=== PATIENT | male | born 1995 | race Hispanic/Latino ===

== ENCOUNTER 2018-04-17 19:07 | Emergency (ER) | payer SELFPAY ==
[~2018-04-17] VITALS: Ht 170.2 cm; Wt 195.0 kg
--- OUTSIDE RECORDS SUMMARY | 2018-04-17 19:09 | XMS REPORT | Continuity of Care Document ---
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 No 11/26/17 1:08am Chief Complaint and Reason for Visit Chief Complaint Chest Pain Reason for Visit Chest discomfort Problems Medical Problem Onset Date Status Heat exhaustion Unknown Acute Past Problems Medical Problem Onset Date Status Chest discomfort Unknown Acute Medications Current Home Medications Medication Dose Units Route Directions Days Qty Instructions Start Date Ibuprofen (Motrin) 600 Mg Tab 600 Mg Oral Three Times A Day as needed for Pain 5 Days 15 Tablet 11/26/17 Neomycin/Polymyxin/Hydrocortisone (Cortisporin Otic Soln) 10 Ml Drops.susp 3 Drop Right Ear Three Times A Day 10 Milliliter 12/29/11 Social History Social History Problem Response Recorded Date/Time Onset Date Status Hx Tobacco Use No 11/26/2017 1:08am Not Applicable Not Applicable Hospital Discharge Instructions No hospital discharge instruction information available. Plan of Care Discharge Date 11/26/17 6:25am Disposition HOME, SELF-CARE 01 Condition at Discharge Stable Instructions/Education Provided Chest Pain (DC) Prescriptions See Medication Section Referrals NO PCP Additional Instructions/Education You were evaluated here in the emergency department today. Please follow-up with your primary care doctor as discussed. If you do not have a primary care doctor please go to: [facility] Address: [address], [place] [address] Return to the ER right away if your symptoms worsen or you have any other immediate concerns. Functional Status Query Response Date Recorded Onset Within the Last 7 Days No Problem Identified November 26, 2017 1:08am Allergies, Adverse Reactions, Alerts Allergen Type Severity Reaction Status Last Updated NO KNOWN ALLERGY Active 12/29/11 Immunizations Query Response on File Recorded Date/Time HX of Pneumococcal Vaccine No 11/26/17 1:08am HX of Influenza Vaccine No 11/26/17 1:08am Tetanus Status Unknown 11/26/17 1:08am Vital Signs Acute Vital Signs Vital Response Date/Time Temperature (Fahrenheit) 97.6 degrees F (97.6 - 99.5) 11/26/2017 1:22am Pulse Rate (adult) 72 bpm (60 - 100) 11/26/2017 1:22am Pulse Rate 70 bpm 11/26/2017 6:20am Respiratory Rate 24 breaths per minute (12 - 24) 11/26/2017 1:22am Respiratory Rate 20 breaths per minute 11/26/2017 6:20am Blood Pressure Systolic 144 mm Hg (100 - 140) 11/26/2017 1:22am Blood Pressure Systolic 142 mm Hg 11/26/2017 6:20am Blood Pressure Diastolic 91 mm Hg (60 - 90) 11/26/2017 1:22am Blood Pressure Diastolic 89 mm Hg 11/26/2017 6:20am Height 5 ft 10 in 11/26/2017 1:22am Weight 438.38 lb 11/26/2017 1:22am Body Mass Index 62.9 kg/m^2 11/26/2017 1:22am Results Laboratory Results Test Name Result Units Flags Reference Collection Date/Time Result Date/Time Comments White Blood Count 7.3 10*3/uL 4.5-11.5 11/26/2017 1:30am 11/26/2017 1:50am Red Blood Count 5.01 10*6/uL 4.4-6.2 11/26/2017 1:30am 11/26/2017 1:50am Hemoglobin 14.1 g/dL 13.0-17.5 11/26/2017 1:11/26/2017 1:50am Hematocrit 43.2 % 39.0-52.5 11/26/2017 1:11/26/2017 1:50am Mean Corpuscular Volume 86 fL 80-94 11/26/2017 1:11/26/2017 1:50am Mean Corpuscular Hemoglobin 28.1 pg 27.0-33.0 11/26/2017 1:11/26/2017 1:50am Mean Corpuscular Hemoglobin Concent 32.6 g/dL L 33.0-37.0 11/26/2017 1:11/26/2017 1:50am Red Cell Distribution Width 13.3 % 10.7-14.5 11/26/2017 1:11/26/2017 1:50am Platelet Count 317 10*3/uL 150-450 11/26/2017 1:11/26/2017 1:50am Mean Platelet Volume 9.1 fl 5.7-10.7 11/26/2017 1:11/26/2017 1:50am Neutrophils (%) (Auto) 51 % 47-75 11/26/2017 1:11/26/2017 1:50am Immature Granulocyte % (Auto) 0 % 0-0 11/26/2017 1:11/26/2017 1:50am Lymphocytes (%) (Auto) 36 % 25-44 11/26/2017 1:11/26/2017 1:50am Monocytes (%) (Auto) 9 % 3-10 11/26/2017 1:11/26/2017 1:50am Eosinophils (%) (Auto) 4 % 0-7 11/26/2017 1:11/26/2017 1:50am Basophils (%) (Auto) 0 % 0-1 11/26/2017 1:11/26/2017 1:50am Nucleated Red Blood Cells % 0.0 % 0-0.2 11/26/2017 1:11/26/2017 1:50am Neutrophils # (Auto) 3.7 10*3/uL 1.3-6.7 11/26/2017 1:11/26/2017 1:50am Immature Granulocyte # (Auto) 0.0 10*3/uL 0.0-0.0 11/26/2017 1:30am 11/26/2017 1:50am Lymphocytes # (Auto) 2.6 10*3/uL 1.4-4.1 11/26/2017 1:30am 11/26/2017 1:50am Monocytes # (Auto) 0.6 10*3/uL 0-1.3 11/26/2017 1:30am 11/26/2017 1:50am Eosinophils # (Auto) 0.3 10*3/uL 0-0.8 11/26/2017 1:30am 11/26/2017 1:50am Basophils # (Auto) 0.0 10*3/uL 0-0.1 11/26/2017 1:3011/26/2017 1:50am Nucleated Red Blood Cells # 0.00 10*3/uL 0-0.01 11/26/2017 1:30am 11/26/2017 1:50am Manual Differential Not Ind 11/26/2017 1:3011/26/2017 1:50am Sodium Level 141 mmol/L 136-145 11/26/2017 1:3011/26/2017 2:16am Potassium Level 3.8 mmol/L 3.5-5.1 11/26/2017 1:3011/26/2017 2:16am Chloride Level 100 mmol/L 98-107 11/26/2017 1:3011/26/2017 2:16am Carbon Dioxide Level 29 mmol/L 24-33 11/26/2017 1:3011/26/2017 2:16am Anion Gap 16 8-18 11/26/2017 1:3011/26/2017 2:16am Blood Urea Nitrogen 10 mg/dL 6-20 11/26/2017 1:30am 11/26/2017 2:16am Creatinine 0.8 mg/dL L 0.9-1.5 11/26/2017 1:3011/26/2017 2:16am Note: Acetaminophen and N-acetylcysteine can cause falsely low measurements of creatinine. Correlation with patient's medication history is recommended. Estimat Glomerular Filtration Rate 126 90-142 11/26/2017 1:3011/26/2017 2:16am Stages of Patients with Estimated GFR Known Kidney Disease (ml/min/1.73 sq.meters) Stage 1 - Kidney damage w/normal 90 mL/min or greater or increased GFR Stage 2 - Kidney disease w/mildly 60-89 mL/min decreased GFR Stage 3 - Moderately decreased GFR 30-59 mL/min Stage 4 - Severely decreased GFR 15-29 mL/min Stage 5 - Kidney failure 14 mL/min or less To estimate the GFR for Americans, multiply the result provided by 1.21. Glucose Level 132 mg/dL H 60-100 11/26/2017 1:30am 11/26/2017 2:16am Calcium Level 8.8 mg/dL L 9.1-10.9 11/26/2017 1:3011/26/2017 2:16am Total Bilirubin 0.2 mg/dL 0.0-1.0 11/26/2017 1:3011/26/2017 2:16am Aspartate Amino Transf (AST/SGOT) 25 U/L 0-40 11/26/2017 1:30am 11/26/2017 2:16am Alanine Aminotransferase (ALT/SGPT) 45 U/L H 0-41 11/26/2017 1:30am 11/26/2017 2:16am Total Protein 7.6 g/dL 6.4-8.3 11/26/2017 1:30am 11/26/2017 2:16am Albumin 3.8 g/dL 3.5-5.0 11/26/2017 1:30am 11/26/2017 2:16am Alkaline Phosphatase 61 U/L 53-128 11/26/2017 1:30am 11/26/2017 2:16am Lipase 28 U/L 13-60 11/26/2017 1:30am 11/26/2017 2:16am Bedside Troponin I 0.00 ng/mL 0.00-0.07 11/26/2017 1:3011/26/2017 1:44am *NOTE: ED bedside Cardiac Marker results may not correlate directly with results from Clinical Lab due to differences in methodologies. Procedures Procedure Status Date Provider(s) X-ray of chest, single view Completed 11/26/17 RICARDO BAH APN ECG (electrocardiogram) Completed 11/26/17 RICARDO BAH APN Encounters Encounter Location Arrival/Admit Date Discharge/Depart Date Attending Provider Departed Emergency Room GRACIELA Mitchell 11/26/17 1:21am 11/26/17 6:25am DRU GUTIÉRREZ III, MD Recent Diagnosis
[2018-04-17] MEDS ORDERED: SODIUM CHLORIDE 0.9% 1000ML 1,000 ML IV STA (19:32)
[2018-04-17] MEDS ORDERED: ONDANSETRON HCL INJ 2 MG/ML VIAL IV STA (19:32)
[2018-04-17] MEDS ORDERED: MAGNESIUM/ALUMINUM/SIMETHICONE 30 ML UDC PO ONE (19:45)
[2018-04-17] MEDS ORDERED: LIDOCAINE VISC 2% SOLN 15 ML UDC PO ONE (19:45)
[2018-04-17] MEDS ORDERED: ACETAMINOPHEN 1000 MG/100 ML IV STA (19:57)
[2018-04-17] MEDS ORDERED: PROTAMINE SULFATE 10 MG/ML 5 ML VIAL IV ONE (20:00)
[2018-04-17] MEDS ORDERED: PANTOPRAZOLE 40 MG 10ML VIAL ONE (20:03)
[2018-04-17] MEDS ORDERED: PANTOPRAZOLE 40 MG 10ML VIAL IV STA (20:13)
[2018-04-17 20:34] LABS: EOSINOPHILS # (AUTO) 0.1 (0.0-0.4); EOSINOPHILS % 1.3 % (0.0-6.0); HEMATOCRIT 43.1 % (38.2-49.6); HEMOGLOBIN 14.4 g/dL (14.0-18.0); LYMPHOCYTES % 9.6 % (18.0-39.1); MEAN CORPUSCULAR HEMOGLOBIN 28.3 pg (28-32); MEAN CORPUSCULAR HGB CONC 33.4 g/dL (31-35); MEAN CORPUSCULAR VOLUME 84.8 fL (81-99); MONOCYTES # (AUTO) 0.5 (0.2-0.8); MONOCYTES % 4.9 % (4.4-11.3); NEUTROPHILS # (AUTO) 8.4 (2.1-6.9); NEUTROPHILS % 83.9 % (38.7-80.0); PLATELET COUNT 323 x10e3/uL (140-360); RED BLOOD COUNT 5.08 x10e6/uL (4.3-5.7); RED CELL DISTRIBUTION WIDTH 13.3 % (11.7-14.4)
[2018-04-17 20:50] LABS: ALANINE AMINOTRANSFERASE 47 IU/L (0-55); ALBUMIN 3.6 g/dL (3.5-5.0); ALBUMIN/GLOBULIN RATIO 0.8 (0.8-2.0); ALKALINE PHOSPHATASE 85 IU/L (40-150); AMYLASE 31 U/L (25-125); ANION GAP 16.7 mmol/L (8-16); BLOOD UREA NITROGEN 12 mg/dL (7-26); BUN/CREATININE RATIO 12 (6-25); CARBON DIOXIDE 25 mmol/L (22-29); CHLORIDE 101 mmol/L (98-107); EST GLOMERULAR FILTRATION RATE > 60 ML/MIN (60-); GLUCOSE 181 mg/dL (74-118); LIPASE 21 U/L (8-78); POTASSIUM 3.7 mmol/L (3.5-5.1); SODIUM 139 mmol/L (136-145)
[2018-04-17] MEDS ORDERED: BELLADONNA ALK/PHENOBARBITAL 5 ML UDC PO SCH (21:00)
--- NOTE | 2018-04-17 21:50 | Diagnostic Imaging Report ---
EXAM: US GALLBLADDER DATE: 04/17/2018 7:32 PM INDICATION: Abdominal pain, COMPARISON: None TECHNIQUE: Transverse and longitudinal plascencia scale and color doppler sonographic images of the upper abdomen were obtained. FINDINGS: Examination is significantly degraded due to poor visualization related to body habitus. LIVER Not well visualized. Right liver is seen with increased hepatic echogenicity. GALLBLADDER Poorly visualized. Hyperechoic area in the gallbladder, likely a stone or sludge. No wall thickening appreciated (0.2 cm). Negative Pool sign. BILE DUCTS No gross intrahepatic biliary ductal dilation within the visualized liver. Common bile duct is not visualized. PANCREAS: The visualized portions grossly unremarkable RIGHT KIDNEY: 11.1 cm, poorly visualized Echogenicity: Normal Collecting System: No hydronephrosis Stones: None Cyst/Mass: None VESSELS: Aorta: Not well visualized Inferior Vena Cava: Not well-visualized Main Portal Vein: Not clearly visualized. FREE FLUID: None IMPRESSION: Examination is significantly degraded due to poor visualization related to body habitus. 1. Hepatic steatosis 2. Probable cholelithiasis or sludge. Signed by: Dr Anca Montemayor MD on 04/17/2018 9:47 PM
[2018-04-17] MEDS ORDERED: SODIUM CHLORIDE 0.9% 50ML 50 ML ONE (23:03)
[2018-04-17] MEDS ORDERED: IOPAMIDOL 370 MG/ML 200 ML INFUS..BTL INJ ONE (23:04)
--- NOTE | 2018-04-17 23:16 | Diagnostic Imaging Report ---
EXAM: CT ABDOMEN/PELVIS W DATE: 04/17/2018 7:57 PM INDICATION: Right-sided abdominal pain, appendicitis COMPARISON: None TECHNIQUE: The abdomen and pelvis were scanned using a multidetector helical scanner. Coronal and sagittal reformations were obtained. CT low dose techniques were utilized, as applicable. IV Contrast: 100 ml Isovue 300/370 FINDINGS: Evaluation is degraded by body habitus causing photon starvation. LOWER THORAX: No consolidations LIVER/BILIARY: Hepatomegaly (25 cm craniocaudal dimension) and hepatic steatosis. No focal masses or biliary ductal dilation. GALLBLADDER: Unremarkable SPLEEN: Unremarkable PANCREAS: Unremarkable ADRENALS: No nodules KIDNEYS: Symmetric renal enhancement. 1 cm left inferior renal hypodensity is poorly characterized due to image noise. No hydronephrosis. GI TRACT: No wall thickening or evidence of obstruction. Appendix appears normal VESSELS: Unremarkable PERITONEUM/RETROPERITONEUM: No free air or fluid. Nonspecific mistiness of the small bowel mesentery with scattered small lymph nodes. 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 Small fat-containing umbilical hernia with minimal infiltration of the fat suggesting some degree of inflammation. IMPRESSION: Evaluation somewhat degraded by noise related to body habitus. 1. Nonspecific findings which can be seen with panniculitis. Otherwise no acute abnormality. 2. Hepatomegaly and hepatic steatosis. Signed by: Dr Anca Montemayor MD on 04/17/2018 11:12 PM
[2018-04-18 01:33] VITALS: BP 117/88
== END 2018-04-18 01:41 | disposition home or self-care (01) ==
LOC: ER 19:07
DX: R10.11 Right upper quadrant pain (principal); R10.13 Epigastric pain; R11.2 Nausea with vomiting, unspecified; R16.0 Hepatomegaly, not elsewhere classified; K76.0 Fatty (change of) liver, not elsewhere classified
CPT/HCPCS: 36415; 74177; 76705; 80053; 82150; 83690; 85025; 99284; J0131; J2405; J7030; Q9967; J2720